=== PATIENT | male | born 1970 | race Hispanic/Latino ===

== ENCOUNTER 2023-03-19 06:49 | Day surgery (SDC) | payer BC ==
[2023-03-13 10:11] LABS: BASOPHILS # (AUTO) 0.02 K/uL (0.00-0.20); BASOPHILS % (AUTO) 0.4 % (0.0-5.0); EOSINOPHILS # (AUTO) 0.02 K/uL (0.00-0.70); EOSINOPHILS % (AUTO) 0.4 % (0.0-8.0); HEMATOCRIT 37.9 % (42-54); IMMATURE GRANULOCYTE ABSOLUTE 0.01 K/uL (0-1); LYMPHOCYTES # (AUTO) 1.9 K/uL (1.0-4.8); MEAN CORPUSCULAR HEMOGLOBIN 30.7 pg (27.0-33.0); MEAN CORPUSCULAR VOLUME 93.1 fL (79-99); MONOCYTES # (AUTO) 0.4 K/uL (0.1-1.0); MONOCYTES % (AUTO) 8.6 % (3.0-13.0); NEUTROPHILS # (AUTO) 2.6 K/uL (1.8-7.7); NEUTROPHILS % (AUTO) 51.4 % (40.0-77.0); PLATELET COUNT (AUTO) 227 K/uL (130-400); RED BLOOD CELL COUNT(AUTO) 4.07 MIL/uL (4.50-6.20); RED CELL DISTRIBUTION WIDTH 13.4 % (11.0-15.5)
[2023-03-13 10:13] VITALS: BP 130/79; PULSE 65; RESP 16
[2023-03-13 10:24] LABS: POTASSIUM 3.6 mmol/L (3.5-5.1)
[2023-03-13 10:26] LABS: APPEARANCE,URINE CLEAR (CLEAR); BILIRUBIN,URINE NEGATIVE (NEGATIVE); COLOR,URINE LIGHT-YELLOW (YELLOW); GLUCOSE, URINE (UA) NEGATIVE (NEGATIVE); KETONES,URINE NEGATIVE (NEGATIVE); LEUKOCYTE ESTERASE ,URINE 25 Leu/uL (NEGATIVE); NITRATE,URINE NEGATIVE (NEGATIVE); OCCULT BLOOD,URINE NEGATIVE (NEGATIVE); PH,URINE 5.5 (5.0-8.0); PROTEIN,URINE NEGATIVE (NEGATIVE); UROBILINOGEN,URINE 0.2 mg/dL (0.2-1.0)
[2023-03-13 10:27] LABS: ADD UA MICROSCOPIC YES
[2023-03-13 10:28] LABS: MUCUS,URINE RARE LPF (None Seen)
[2023-03-13 10:31] LABS: INR 0.96 (0.85-1.15); PROTHROMBIN TIME 11.2 SEC (9.6-11.6)
[2023-03-13 10:32] LABS: PARTIAL THROMBOPLASTIN TIME 29.5 SEC (26.3-35.5)
[2023-03-19] VITALS (19 sets, daily range): BP systolic 92–138; BP diastolic 54–83; PULSE 51–75; RESP 12–18
[~2023-03-19] VITALS: Ht 180.3 cm; Wt 83.9 kg
[~2023-03-19 06:49] MED LIST: CHOL100053 PO; CYAN50009 PO; MULT-1367 PO; [UNRECOGNIZED DRUG - OTHER] PO; [UNRECOGNIZED DRUG - OTHER] PO
[2023-03-19] MEDS ORDERED: LEVOFLOXACIN 500 MG/D5W 100 ML 100 ML ONE (07:14)
[2023-03-19] MEDS ORDERED: LACTATED RINGERS 1000ML 1,000 ML IV ONE (07:14)
[2023-03-19] MEDS ORDERED: DEXAMETHASONE SOD PHOSPHATE 10MG/ML 1ML VIAL ONE (10:06)
[2023-03-19] MEDS ORDERED: ONDANSETRON 4MG INJ ONE ×2 (10:06→13:22)
[2023-03-19] MEDS ORDERED: LIDOCAINE PF 100MG/5ML (2%) SYRINGE 5ML ONE (10:06)
[2023-03-19] MEDS ORDERED: PROPOFOL 10 MG/ML 20ML VIAL IV ONE (10:06)
[2023-03-19] MEDS ORDERED: MIDAZOLAM HCL 1 MG/ML 2ML VIAL ONE (10:06)
[2023-03-19] MEDS ORDERED: SUCCINYLCHOLINE 200MG/10ML SYR ONE (10:06)
[2023-03-19] MEDS ORDERED: FENTANYL CITRATE PF 50 MCG/1 ML 2ML VIAL ONE (10:07)
[2023-03-19] MEDS ORDERED: IOHEXOL-350 50ML VIAL IV ONE (10:32)
[2023-03-19] MEDS ORDERED: KETOROLAC 30MG VIAL (30MG/ML) ONE (11:09)
[2023-03-19] MEDS ORDERED: KETOROLAC 15MG/ML VIAL (15MG/ML) ONE (12:41)
[2023-03-19] MEDS ORDERED: HYDROCODONE/ACETAMINOPHEN 5/325 MG TAB ONE (12:56)
[2023-03-25 10:55] LABS: STONE COLOR SEE SEPARATE REPORT; STONE SIZE SEE SEPARATE REPORT
[2023-03-25 10:56] LABS: STONE COMPOSITION SEE SEPARATE REPORT; STONE WEIGHT SEE SEPARATE REPORT
== END 2023-03-19 13:40 | disposition home or self-care (01) ==
LOC: DAH 06:49
PROVIDERS: ATTEND Urology
DX: N20.2 Calculus of kidney with calculus of ureter (principal); Z88.0 Allergy status to penicillin; Z88.8 Allergy status to other drugs, medicaments and biological substances; Z79.899 Other long term (current) drug therapy; Z20.822 Contact with and (suspected) exposure to COVID-19; Z98.890 Other specified postprocedural states
CPT/HCPCS: 80048; 85025; 85610; 85730; 87088; 87426; 81001; 36415 ×2; 93005; 52356; 82360; 74420; 74018; A6260; A4663; A6207; C1758; C2617; J7120; J3010; J0330; J1100; J1956; J2001; J2250; J2704; J2405 ×2; J1885; Q9967; A4358; A4215; A4223; A4222; A4221; C1769; A4600; J3490